=== PATIENT | female | born 1995 ===

== ENCOUNTER 2017-03-03 15:49 | Emergency (ER) | payer OTHER ==
[2017-03-03] MEDS ORDERED: Tetan/Diph/Pertus SYR(Tdap)* 0.5 ML SYR(BOOSTRIX) use SYR IM ONE (16:07)
--- NOTE | 2017-03-03 17:00 | UC ---
Aidan Leal Thomas, scribed for Juanis Jewell DO on 03/03/17 at 1609 . Skin Complaint HPI - HPI Summary HPI Summary: The pt is a 21 y/o F referred to [facility] from her PCP s/p a scratch by a metal tire a few says ago and in need of a tetanus update. Her last tetanus vaccination was 8 years ago. She also requests a PPD in the room, which will be completed during this visit but is documented on a separate chart. Pt denies fevers, chills, sweats, CP, SOB, rashes, coughs, and VERDUGO. PMHx: previously healthy except acne. PSHx: wisdom teeth extraction. SHx: no smoking, occasional alcohol use, and no illicit drug use. FHx: DM. - History of Current Complaint Chief Complaint: [place] Time Seen by Provider: 03/03/17 15:55 Stated Complaint: SCRATCH ON HAND Hx Obtained From: Patient Hx Last Menstrual Period: 02/22/17 Onset/Duration: Sudden Onset, Lasting Days - "a few", Still Present Skin Exposure Onset/Duration: Days Ago Onset Severity: Mild Current Severity: None Location: Other - Left pinky finger Aggravating: Nothing Alleviating: Nothing Associated Signs & Symptoms: Positive: Negative Related History: Other: - scratch by a metal tire - Allergy/Home Medications Allergies/Adverse Reactions: Allergies Allergy/AdvReac Type Severity Reaction Status Date / Time No Known Allergies Allergy Verified 03/03/17 15:56 Home Medications: Home Medications Minocycline (NF) 50 mg 03/03/17 [History] Norgestimate-Ethinyl Estradiol [[facility]] 1 tab PO 03/03/17 [History] Review of Systems Constitutional: Negative Skin: Other - POS: scratch by a metal tire ("a few day ago") Eyes: Negative ENT: Negative Respiratory: Negative Cardiovascular: Negative Gastrointestinal: Negative Genitourinary: Negative Motor: Negative Neurovascular: Negative Musculoskeletal: Negative Neurological: Negative Psychological: Negative All Other Systems Reviewed And Are Negative: Yes PMH/Surg Hx/FS Hx/Imm Hx Previously Healthy: Yes - Previously healthy except acne - Surgical History Surgical History: Yes Surgery Procedure, Year, and Place: wisdom teeth extraction - Family History Known Family History: Positive: Diabetes - Social History Occupation: Student Alcohol Use: Occasionally Substance Use Type: None Smoking Status (MU): Never Smoked Tobacco Physical Exam Triage Information Reviewed: Yes Appearance: Well-Appearing, No Pain Distress, Well-Nourished Vital Signs: Initial Vital Signs Temp 99.3 F 03/03/17 15:52 Pulse 85 03/03/17 15:52 Resp 18 03/03/17 15:52 BP 117/72 03/03/17 15:52 Pulse Ox 100 03/03/17 15:52 Vital Signs Reviewed: Yes Eyes: Positive: Conjunctiva Clear. Negative: Discharge ENT: Positive: Hearing grossly normal. Negative: Muffled/hoarse voice Neck exam: Normal Neck: Positive: Supple Respiratory: Positive: Lungs clear, Normal breath sounds, No respiratory distress, No accessory muscle use Cardiovascular: Positive: RRR, No Murmur Musculoskeletal Exam: Normal Neurological: Positive: Alert, Muscle Tone Normal Psychological Exam: Normal Psychological: Positive: Age Appropriate Behavior Skin Exam: Normal Skin: Positive: Other - POS: small scratch to left pinky finger Course/Dx - Course Course Of Treatment: The pt is a 21 y/o F referred to [facility] from her PCP s/p a scratch by a metal tire a few says ago and in need of a tetanus update. Her last tetanus vaccination was 8 years ago. She also requests a PPD in the room, which will be completed during this visit but is documented on a separate chart. Pt denies fevers, chills, sweats, CP, SOB, rashes, coughs, and VERDUGO. PMHx: previously healthy except acne. PSHx: wisdom teeth extraction. SHx: no smoking, occasional alcohol use, and no illicit drug use. FHx: DM. The patient was given a tetanus vaccination. The patient will be discharged home. - Diagnoses Provider Diagnoses: abrasion, tetnus Discharge - Discharge Plan Condition: Stable Disposition: HOME Patient Education Materials: Diphtheria/Acellular Pertussis/Tetanus Booster Vaccine (By injection), Abrasion (ED) The documentation as recorded by the Aidan herron Thomas accurately reflects the service I personally performed and the decisions made by , Juanis Jewell DO.
== END 2017-03-03 16:40 | disposition home or self-care (01) ==
LOC: UCEAST 15:49
DX: S60.417A Abrasion of left little finger, initial encounter (principal); W45.8XXA Other foreign body or object entering through skin, initial encounter; Y93.9 Activity, unspecified; Y92.9 Unspecified place or not applicable; Z23 Encounter for immunization; L70.9 Acne, unspecified
CPT/HCPCS: 90471; 90715; 99201; G0463

== ENCOUNTER → 2017-03-03 16:11 | Emergency (ER) | payer SELFPAY ==
[~2017-03-03 16:11] MED LIST: PPD test dose* 5 TU/0.1 ML TEST (*USE PPD ORDER SET*) ONE
== END | disposition home or self-care (01) ==
LOC: OHEAST 16:11
DX: Z11.1 Encounter for screening for respiratory tuberculosis (principal)